=== PATIENT | male | born 1970 | race Two or more races ===

== ENCOUNTER 2020-08-14 10:41 | Emergency (ER) | payer OTHER ==
[~2020-08-14] VITALS: Ht 167.6 cm; Wt 155.6 kg
[2020-08-14] MEDS ORDERED: ACETAMINOPHEN650 M2 PO (13:03)
[2020-08-14] MEDS ORDERED: BENADRYL ALLERG25 MG PO (13:08)
[2020-08-14] MEDS ORDERED: GUAIFENESIN200 MG PO (13:08)
== END 2020-08-14 13:24 | disposition home or self-care (01) ==
LOC: ER 10:41
DX: A90 Dengue fever [classical dengue] (principal); B34.9 Viral infection, unspecified; R60.0 Localized edema; L53.8 Other specified erythematous conditions; R05 Cough; T78.49XA Other allergy, initial encounter; Z03.818 Encounter for observation for suspected exposure to other biological agents ruled out; X58.XXXA Exposure to other specified factors, initial encounter